=== PATIENT | female | born 1990 | race Caucasian/White ===

== ENCOUNTER 2020-05-02 18:29 | Emergency (ER) | payer MEDICAID ==
[~2020-05-02] VITALS: Ht 167.6 cm; Wt 100.0 kg
[2020-05-02] MEDS ORDERED: ACETAMINOPHEN 500MG TABLET PO ONE ×2 (19:15→21:00)
[2020-05-02 21:19] VITALS: BP 135/78
== END 2020-05-02 21:29 | disposition home or self-care (01) ==
LOC: ER 18:29
DX: M25.572 Pain in left ankle and joints of left foot (principal)
CPT/HCPCS: 73610; 99283

== ENCOUNTER 2023-12-30 08:30 | Emergency (ER) | payer MEDICAID ==
[~2023-12-30] VITALS: Ht 162.6 cm; Wt 90.0 kg
[2023-12-30 08:32] VITALS: O2SAT 100
[2023-12-30] MEDS ORDERED: SULF1TAB48 MT (12:18)
[2023-12-30 12:41] VITALS: BP 129/76; PULSE 80; RESP 18; TEMP 99.1
== END 2023-12-30 12:43 | disposition home or self-care (01) ==
LOC: ER 08:36
DX: L02.411 Cutaneous abscess of right axilla (principal)
CPT/HCPCS: 99283

== ENCOUNTER 2024-01-06 07:27 | Emergency (ER) | payer MEDICAID ==
[~2024-01-06] VITALS: Ht 167.6 cm; Wt 108.0 kg
[~2024-01-06 07:27] MED LIST: SULF1TAB48 MT
[2024-01-06 07:34] VITALS: O2SAT 100
[2024-01-06] MEDS ORDERED: DOXY100T2 MT (07:42)
[2024-01-06] MEDS ORDERED: P20 MT (07:42)
[2024-01-06] MEDS ORDERED: DIPHENHYDRAMINE 50MG CAPSULE PO ONE (07:45)
[2024-01-06] MEDS: PREDNISONE 20MG TABLET PO ONE (08:36)
[2024-01-06] MEDS: FAMOTIDINE 20MG TABLET PO ONE (08:36)
[2024-01-06] MEDS: DIPHENHYDRAMINE 25MG CAPSULE PO NR (08:36)
[2024-01-06 09:18] VITALS: BP 123/66; PULSE 81; RESP 18; TEMP 98.5
== END 2024-01-06 10:47 | disposition home or self-care (01) ==
LOC: ER 07:27
DX: R21 Rash and other nonspecific skin eruption (principal); T50.905A Adverse effect of unspecified drugs, medicaments and biological substances, initial encounter; Y92.89 Other specified places as the place of occurrence of the external cause
CPT/HCPCS: 99284; Q0163; J7512

== ENCOUNTER 2025-06-13 18:13 | Emergency (ER) | payer SELFPAY ==
[~2025-06-13] VITALS: Ht 167.6 cm; Wt 106.0 kg
[~2025-06-13 18:13] MED LIST changes: +DOXY100T2 MT; +P20 MT
[2025-06-13 18:35] VITALS: O2SAT 98
[2025-06-13] MEDS: KETOROLAC 30MG/ML VIAL IM ONE (19:35)
[2025-06-13] MEDS ORDERED: ACET-2708 PO (19:58)
[2025-06-13] MEDS ORDERED: LIDO-53 TP (19:58)
[2025-06-13 20:22] VITALS: BP 131/69; PULSE 90; RESP 18; TEMP 36.8; O2SAT 99
== END 2025-06-13 20:22 | disposition home or self-care (01) ==
LOC: ER 18:13
DX: S90.811A Abrasion, right foot, initial encounter (principal); Z88.1 Allergy status to other antibiotic agents; Z88.2 Allergy status to sulfonamides; W18.30XA Fall on same level, unspecified, initial encounter; Y93.89 Activity, other specified; Y92.89 Other specified places as the place of occurrence of the external cause; Y99.8 Other external cause status
CPT/HCPCS: 99283; 81025; 96372; J1885; A6449